=== PATIENT | male | born 1965 | race Caucasian/White ===

== ENCOUNTER 2020-06-30 11:48 | Emergency (ER) | payer MEDICARE ==
--- NOTE | 2020-06-30 12:10 | ER Document Report ---
ED Medical Screen (RME) - General Chief Complaint: Shortness Of Breath Stated Complaint: SHORTNESS OF BREATH Time Seen by Provider: 06/30/20 12:04 Mode of Arrival: Wheelchair Information source: Patient Notes: 54-year-old male presented to ED for complaint of shortness of breath. He states he is a Tuesday dialysis patient and dialysis called him today and said they could not get his dialysis done today. He states he cannot wait till tomorrow. He states he always gets short of breath on Tuesday and he cannot wait till Tuesday to get his dialysis. 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 He does have a history of high blood pressure and dialysis. He states he has renal failure due to a combination of blood pressure diabetes and the use of metformin. Does not smoke drink or use any drugs. I have greeted and performed a rapid initial assessment of this patient. A comprehensive ED assessment and evaluation of the patient, analysis of test results and completion of medical decision making process will be conducted by an additional ED providers. - Related Data Allergies/Adverse Reactions: No Known Allergies Allergy (Unverified 06/30/20 12:04) Physical Exam - Vital signs Vitals: Temp Pulse Resp BP Pulse Ox 97.7 F 73 20 154/82 H 95 06/30/20 11:53 06/30/20 11:53 06/30/20 11:53 06/30/20 11:53 06/30/20 11:53 Course - Vital Signs Vital signs: Temp Pulse Resp BP Pulse Ox 97.7 F 73 20 154/82 H 95 06/30/20 11:53 06/30/20 11:53 06/30/20 11:53 06/30/20 11:53 06/30/20 11:53
--- NOTE | 2020-06-30 12:34 | RADIOLOGY REPORT (SQ) ---
EXAM DESCRIPTION: CHEST 2 VIEWS IMAGES COMPLETED DATE/TIME: 06/30/2020 12:22 pm REASON FOR STUDY: Short of breath dialysis due today COMPARISON: None. EXAM PARAMETERS: NUMBER OF VIEWS: two views TECHNIQUE: Digital Frontal and Lateral radiographic views of the chest acquired. RADIATION DOSE: NA LIMITATIONS: none FINDINGS: LUNGS AND PLEURA: Pulmonary vascular congestion. Cannot exclude limited infiltrate in the right costophrenic angle. MEDIASTINUM AND HILAR STRUCTURES: No masses or contour abnormalities. HEART AND VASCULAR STRUCTURES: Heart size is borderline. No oswaldo pulmonary edema. BONES: No acute findings. HARDWARE: None in the chest. OTHER: No other significant finding. IMPRESSION: Borderline cardiomegaly with pulmonary vascular congestion. Cannot exclude a limited ri ght lower lobe pneumonia. TECHNICAL DOCUMENTATION: JOB ID: [id number] 2010 [employer]- All Rights Reserved Reading location - IP/workstation name: [email or web address]
[2020-06-30 12:55] LABS: ABSOLUTE BASOPHILS # (AUTO) 0.1 10^3/uL (0.0-0.2); ABSOLUTE EOSINOPHILS # (AUTO) 0.4 10^3/uL (0.0-0.6); ABSOLUTE MONOCYTES (AUTO) 0.5 10^3/uL (0.1-1.4); ABSOLUTE NEUT (AUTO) 8.5 10^3/uL (1.7-8.2); BASOPHILS % (AUTO) 1.2 % (0-2); EOSINOPHILS % (AUTO) 3.6 % (0-6); HEMOGLOBIN 11.4 g/dL (13.5-17.0); LYMPHOCYTES % (AUTO) 9.5 % (13-45); MEAN CORPUSCULAR HEMOGLOBIN 30.3 pg (27.0-33.4); MEAN CORPUSCULAR HGB CONC 33.6 g/dL (32.0-36.0); MEAN CORPUSCULAR VOLUME 90 fl (80-97); MONOCYTES % (AUTO) 4.9 % (3-13); PLATELET COUNT 189 10^3/uL (150-450); RED BLOOD COUNT 3.77 10^6/uL (4.35-5.55); RED CELL DISTRIBUTION WIDTH 19.9 % (11.5-14.0); SEGMENTED NEUTROPHILS % (AUTO) 80.8 % (42-78); TOTAL CELLS COUNTED % (AUTO) 100 %; WHITE BLOOD COUNT 10.6 10^3/uL (4.0-10.5)
[2020-06-30 13:23] LABS: ALKALINE PHOSPHATASE 162 U/L (38-126); ANION GAP 17 (5-19); ASPARTATE AMINO TRANSFERASE 20 U/L (17-59); BILIRUBIN,DIRECT 0.6 mg/dL (0.0-0.4); BILIRUBIN,TOTAL 0.6 mg/dL (0.2-1.3); BLOOD UREA NITROGEN 116 mg/dL (7-20); CALCIUM 8.9 mg/dL (8.4-10.2); CARBON DIOXIDE 18 mmol/L (22-30); CHLORIDE 104 mmol/L (98-107); CREATINE KINASE 52 U/L (55-170); GLUCOSE 202 mg/dL (75-110); TOTAL PROTEIN 7.8 g/dL (6.3-8.2)
[2020-06-30 13:56] LABS: POTASSIUM 7.2 mmol/L (3.6-5.0)
[2020-06-30] MEDS ORDERED: CALCIUM GLUCONATE 1000 MG/10 ML INJ IV ONE (14:14)
[2020-06-30] MEDS ORDERED: DEXTROSE 50%-WATER 25 GM/50 ML DISP.SYRIN IV ONE (14:14)
[2020-06-30] MEDS ORDERED: INSULIN REG, HUMAN 100 UNIT/ML 3 ML VIAL (PYX) SUBCUT ONE (14:14)
[2020-06-30] MEDS ORDERED: SODIUM POLYSTYRENE SULFONATE 15 GM/60 ML NG ONE (14:14)
--- NOTE | 2020-06-30 14:14 | ER Document Report ---
ED Respiratory Problem - General Chief Complaint: Shortness Of Breath Stated Complaint: SHORTNESS OF BREATH Time Seen by Provider: 06/30/20 12:04 Primary Care Provider: KAVEH GARCIA [Primary Care Provider] - Follow up as needed Jayashree CHACKO MD [ACTIVE STAFF] - Follow up as needed Mode of Arrival: Wheelchair Notes: 54-year-old male with a history of end-stage renal disease presents here complaining of shortness of breath requesting dialysis. The patient was supposed to have dialysis at a local [facility] facility. The patient states they would dialyze him tomorrow but he feels so short of breath that he does not feel that he can make it at this time. He denies any chest pain. He is traveling from [facility] [place]. He thought he had facility lined up but it did not work out. Patient denies fever chills cough or sore throat complaint of shortness of breath denies chest pain shortness of breath is at rest and is worse with exertion does still improve slightly with rest. Planes of some edema. Laying flat does make it worse. - Related Data Allergies/Adverse Reactions: No Known Allergies Allergy (Unverified 06/30/20 12:04) Past Medical History - General Information source: Patient - Social History Smoking Status: Former Smoker Chew tobacco use (# tins/day): No Frequency of alcohol use: None Drug Abuse: None Family History: Reviewed & Not Pertinent Patient has homicidal ideation: No Review of Systems - Review of Systems Constitutional: denies: Chills, Fever EENT: denies: Sinus pressure, Sinus discharge, Throat pain Cardiovascular: Orthopnea, Dyspnea, Edema. denies: Chest pain Respiratory: See HPI, Short of breath. denies: Hurts to breathe, Hemoptysis, Wheezing Gastrointestinal: No symptoms reported Genitourinary: No symptoms reported -: Yes All other systems reviewed and negative Physical Exam - Vital signs Vitals: Temp Pulse Resp BP Pulse Ox 97.7 F 73 20 154/82 H 95 06/30/20 11:53 06/30/20 11:53 06/30/20 11:53 06/30/20 11:53 06/30/20 11:53 - Notes Notes: GENERAL_APPEARANCE: well_nourished, alert, cooperative VITALS: reviewed, see vital signs table. HEAD: no_swelling\tenderness on the head. EYES: PERRL, EOMI, conjunctiva_clear. NOSE: no_nasal_discharge. MOUTH: (-)decreased moisture. THROAT: no_tonsilar_inflammation, no_airway_obstruction. no_lymphadenopathy NECK: supple, no_neck_tenderness, (-)thyromegaly. BACK: no_back_tenderness. CHEST_WALL: no_chest_tenderness. LUNGS: no_wheezing, bibasilar rales, no_rhonchi, (-)accessory muscle use, good air exchange bilateral. HEART: normal_rate, normal_rhythm, normal_S1, normal_S2, (-)S3, (-)S4, no_murmur, no_rub. ABDOMEN: soft, no_abd_tenderness, (-)guarding, (-)rebound, no_organomegaly, no_abd_masses. EXTREMITIES: good pulses in all_extremities, no_swelling\tenderness in the extremities, 2+_edema. SKIN: warm, dry, good_color, no_rash. MENTAL_STATUS: speech_clear, oriented_X_3, normal_affect, responds_appropriately to questions. Course - Re-evaluation Re-evalutation: 06/30/20 14:13 54-year-old male presents with difficulty breathing and fluid overload. His last dialysis was Tuesday. Patient is due to be dialyzed today. His K is 7.2. He does show show some pulmonary edema on his chest x-ray. This is confirmed clinically he is 95% on room air but if he moves around he does drop. He does have a sinus rhythm with some mild peaking of the T waves. No wide-complex or bradycardia. We will treat the patient medically for hyperkalemia. We are trying to get a hold of Dr. Chacko nephrology to see if we can emergently dialyze him here however there is been a delay in call back. 06/30/20 19:47 Dialysis is complete potassium is around 3 patient will be discharged home he denies any shortness of breath at this time - Vital Signs Vital signs: Temp Pulse Resp BP Pulse Ox 97.7 F 73 9 L 159/93 H 95 06/30/20 11:53 06/30/20 11:53 06/30/20 19:31 06/30/20 19:31 06/30/20 19:31 - Laboratory Result Diagrams: 06/30/20 12:35 06/30/20 18:55 Laboratory results interpreted by me: 06/30/20 06/30/20 12:35 12:35 WBC 10.6 H RBC 3.77 L Hgb 11.4 L Hct 34.0 L RDW 19.9 H Lymph % (Auto) 9.5 L Absolute Neuts (auto) 8.5 H Seg Neutrophils % 80.8 H Potassium 7.2 H* Carbon Dioxide 18 L BUN 116 H Creatinine 11.88 H Est GFR ( Amer) 5 L Est GFR (MDRD) Non-Af 4 L Glucose 202 H Direct Bilirubin 0.6 H Alkaline Phosphatase 162 H Creatine Kinase 52 L Lipase 381.5 H - Diagnostic Test Radiology reviewed: Reports reviewed Radiology results interpreted by me: 06/30/20 14:14 Chest X-Ray 06/30/20 12:10 IMPRESSION: Borderline cardiomegaly with pulmonary vascular congestion. Cannot exclude a limited right lower lobe pneumonia. 06/30/20 15:[address] Chacko the patient has a potassium 7.2 with T wave peaking. They will emergently dialyze the patient here in the emergency department. Discharge - Discharge Clinical Impression: Hyperkalemia Fluid overload Qualifiers: Hypervolemia type: unspecified Qualified Code(s): E87.70 - Fluid overload, unspecified Disposition: HOME, SELF-CARE Instructions: Kidney Failure ([facility]) Referrals: LOCALMD,NO [Primary Care Provider] - Follow up as needed Jayashree CHACKO MD [ACTIVE STAFF] - Follow up as needed
[2020-06-30 19:47] VITALS: BP 159/93
--- NOTE | 2020-07-01 08:33 | EKG REPORT ---
SEVERITY:- NORMAL ECG - SINUS RHYTHM : Confirmed by: Kisha Dominguez MD 01-Jul-2020 08:32:06
== END 2020-06-30 19:59 | disposition home or self-care (01) ==
LOC: ER 11:48
DX: I12.0 Hypertensive chronic kidney disease with stage 5 chronic kidney disease or end stage renal disease (principal); E11.22 Type 2 diabetes mellitus with diabetic chronic kidney disease; Z99.2 Dependence on renal dialysis; E87.5 Hyperkalemia; Z87.891 Personal history of nicotine dependence; Z89.512 Acquired absence of left leg below knee
CPT/HCPCS: 93005; 99285; 36415; 82550; 83690; 84132; 85025; 80053; 71046; 93010; G0257